=== PATIENT | male | born 1945 | race Caucasian/White ===

== ENCOUNTER 2024-07-09 08:57 | Outpatient (CLI) | payer OTHER | END 2024-07-09 23:59 | disposition home or self-care (01) | LOC: RAD 08:57 | PROVIDERS: ATTEND Physician Assistant | DX: M51.17 Intervertebral disc disorders with radiculopathy, lumbosacral region (principal); M48.07 Spinal stenosis, lumbosacral region; M47.27 Other spondylosis with radiculopathy, lumbosacral region; M25.78 Osteophyte, vertebrae | CPT/HCPCS: 72131 ==